=== PATIENT | male | born 1970 | race Caucasian/White ===

== ENCOUNTER 2016-11-27 10:46 | Emergency (ER) | payer OTHER | END 2016-11-27 14:00 | disposition home or self-care (01) | LOC: ER1 10:46 | DX: J20.9 Acute bronchitis, unspecified (principal); F17.210 Nicotine dependence, cigarettes, uncomplicated; Z88.0 Allergy status to penicillin | CPT/HCPCS: 71020; 99283; Q0162 ==

== ENCOUNTER → 2016-12-31 | Outpatient (CLI) | payer OTHER | LOC: RAD 14:50 | DX: M54.2 Cervicalgia (principal); M54.5 Low back pain; M50.322 Other cervical disc degeneration at C5-C6 level; M50.323 Other cervical disc degeneration at C6-C7 level; M47.816 Spondylosis without myelopathy or radiculopathy, lumbar region; M47.814 Spondylosis without myelopathy or radiculopathy, thoracic region; M43.9 Deforming dorsopathy, unspecified | CPT/HCPCS: 72050; 72072; 72110 ==